=== PATIENT | female | born 1955 | race Caucasian/White ===

== ENCOUNTER 2018-12-23 19:08 | Observation (INO) | payer BC ==
[2018-12-23 19:53] LABS: #Basophils 0.1 thou/uL (0.0-0.2); #Eosinphils 0.3 thou/uL (0.0-0.7); #Lymphocytes 2.6 thou/uL (1.20-3.40); #Monocytes 0.5 thou/uL (0.11-0.59); #Neutrophils 2.3 thou/uL (1.40-6.50); %Basophils 1.2 % (0.0-1.0); %Eosinophils 5.2 % (0.0-10.0); %Lymphocytes 45.9 % (21.0-51.0); %Monocytes 7.9 % (0.0-10.0); %Neutrophils 39.9 % (42.0-75.0); Hemoglobin 14.7 g/dL (12.0-16.0); Mean Corpuscular HGB CONC 34.3 g/dL (32.0-36.0); Mean Corpuscular Hemoglobin 32.5 pg (27.0-31.0); Mean Corpuscular Volume 94.8 fL (78.0-98.0); Mean Platelet Volume 8.5 fL (7.4-10.4); Platelet Count 215 thou/uL (130-400); RBC Distribution Width 11.3 % (11.5-14.5); Red Blood Cell (RBC) Count 4.52 mill/uL (4.20-5.40); White Blood Cell (WBC) Count 5.7 thou/uL (4.8-10.8)
[2018-12-23 20:14] LABS: ALT (SGPT) 10 U/L (8-55); AST (SGOT) 11 U/L (5-34); Albumin 4.1 g/dL (3.4-4.8); Alkaline Phosphatase 74 U/L (40-110); Anion Gap 10 mmol/L (10-20); BUN (Urea Nitrogen) 13 mg/dL (9.8-20.1); Bilirubin, Total 0.3 mg/dL (0.2-1.2); Calc. Creatinine Clearance 0 mL/min (70-130); Carbon Dioxide 28 mmol/L (23-31); Chloride 105 mmol/L (98-107); Estimated GFR-MDRD 60; Globulin 2.5 g/dL (2.4-3.5); Glucose 88 mg/dL (80-115); Potassium 3.8 mmol/L (3.5-5.1); Protein, Total 6.6 g/dL (6.0-8.3); Sodium 139 mmol/L (136-145)
--- NOTE | 2018-12-23 21:04 | CT ---
CT Brain WO Con History: Right-sided weakness and numbness Comparison: None. Findings: No acute hemorrhage or infarct. No midline shift or mass effect. Ventricular size and extra -axial CSF spaces are normal. Calvarium is intact. Paranasal sinuses and mastoids are clear. Impression: No acute intracranial abnormality.
[2018-12-23 21:18] LABS: Bilirubin Negative (Negative); Blood, Urine Negative (Negative); Clarity Clear (Clear); Glucose, Urine (Dipstick) Normal (Negative); Leukocyte Negative Leu/uL (Negative); Nitrite Negative (Negative); Protein, Urine (Dipstick) Negative (Neg-Trace); Urobilinogen Normal mg/dL (Less than 2)
[2018-12-23] MEDS ORDERED: Nicotine 14 MG PATCH TOP SCH (21:45)
--- NOTE | 2018-12-23 22:56 | PDOC.FPRHP ---
- History of Present Illness Chief Complaint: R. sided weakness History of Present Illness: Pt reports taking hot bath today and states that her right arm got weak. Pt reports driving yesterday and that her R. leg got so weak she had to lift her leg to move it. Pt reports when writing over the last week she will get easily tired and reports not being able to lift right arm. Reports having 30 lb weight loss since February. Denies any ringing in her ears. Denies any vertigo or dizziness. Denies anybody noticing that she has abnormal gait. Pt reports at times when turning into her office she will bang into the side of the door. Reports has been getting worse. Says door frames interactions have worsened over the last few weeks. Denies any trouble swallowing. Reports food not tasting as good lately. Pt reports for last 20 years she has had trouble with finding words at times. - Allergies/Adverse Reactions Allergies Allergy/AdvReac Type Severity Reaction Status Date / Time No Known Allergies Allergy Verified 12/24/18 00:07 - Home Medications Medication Instructions Recorded Confirmed Type Atorvastatin Calcium 10 mg PO DAILY #30 tablet 12/24/18 Rx Cyanocobalamin (Vitamin B-12) 1,000 mcg PO DAILY 12/24/18 12/24/18 History [B-12] Ergocalciferol [Drisdol] 1 cap PO Q7DAYS 12/24/18 12/24/18 History Comments: B12 injections Vitamin D - History PMHx: Negative PSHx: None FHx: Mother- Osteoporosis, Dad- of Stroke age 92, had breast cancer, Sister - seizures Social: drinks 2 drinks once a week, Smokes ppd forever, Denies any illicit drug use Code Status: Full Code - Review of Systems General: denies: night sweats, fatigue Eyes: denies: eye pain, vision changes ENT: denies: nasal congestion, rhinorrhea Respiratory: reports: exercise intolerance. denies: cough, shortness of breath Cardiovascular: denies: chest pain, edema Gastrointestinal: denies: nausea, vomiting, diarrhea, constipation, abdominal pain, GI bleeding Genitourinary: denies: incontinence, dysuria, polyuria Skin: denies: rashes, lesions Musculoskeletal: denies: pain, swelling, arthritis/arthralgias Neurological: denies: numbness, seizure, weakness Psychological: denies: anxiety, depression - Vital signs BP: [117/66] HR: [88] RR: [18] Tmax: [98.3] Pox: [98]% on [RA] Wt: [] - Physical Exam Constitutional: NAD, awake, alert and oriented, well developed HEENT: normocephalic and atraumatic, PERRLA, EOMI, conjunctiva clear, no scleral icterus, grossly normal vision, grossly normal hearing, normal nasal mucosa, MMM, oropharynx clear, good dention Neck: supple, FROM, trachea midline, no LAD, no JVD Chest: no-tender to palpation, no lesions Heart: RRR, normal S1/S2, no murmurs/rubs/gallops, pulses present, no edema Lungs: CTAB, no respiratory distress, good air movement, no rales/rhonchi, no wheezing, no retractions Abdomen: soft, non-tender, bowel sounds present, no masses/distention, no hernias Musculoskeletal: normal structure, normal tone, ROM grossly normal Neurological: other (2/5 Strength on RUE and RLE) Skin: no rash/lesions, no jaundice Heme/Lymphatic: no unusual bruising or bleeding, no purpura, no petechia Psychiatric: normal mood and affect, good judgment and insight, intact recent and remote memory FMR H&P: Results - Labs Result Diagrams: 12/24/18 05:01 12/24/18 05:01 Lab results: WBC 5.7 thou/uL (4.8-10.8) 12/23/18 19:39 Hgb 14.7 g/dL (12.0-16.0) 12/23/18 19:39 Hct 42.8 % (36.0-47.0) 12/23/18 19:39 MCV 94.8 fL (78.0-98.0) 12/23/18 19:39 Plt Count 215 thou/uL (130-400) 12/23/18 19:39 Neutrophils % 39.9 % (42.0-75.0) L 12/23/18 19:39 Sodium 139 mmol/L (136-145) 12/23/18 19:39 Potassium 3.8 mmol/L (3.5-5.1) 12/23/18 19:39 Chloride 105 mmol/L (98-107) 12/23/18 19:39 Carbon Dioxide 28 mmol/L (23-31) 12/23/18 19:39 BUN 13 mg/dL (9.8-20.1) 12/23/18 19:39 Creatinine 0.95 mg/dL (0.6-1.1) 12/23/18 19:39 Glucose 88 mg/dL (80-115) 12/23/18 19:39 Calcium 9.0 mg/dL (7.8-10.44) 12/23/18 19:39 Total Bilirubin 0.3 mg/dL (0.2-1.2) 12/23/18 19:39 AST 11 U/L (5-34) 12/23/18 19:39 ALT 10 U/L (8-55) 12/23/18 19:39 Alkaline Phosphatase 74 U/L (40-110) 12/23/18 19:39 Serum Total Protein 6.6 g/dL (6.0-8.3) 12/23/18 19:39 Albumin 4.1 g/dL (3.4-4.8) 12/23/18 19:39 Urine Ketones Negative mg/dL (Negative) 12/23/18 20:49 Urine Blood Negative (Negative) 12/23/18 20:49 Urine Nitrite Negative (Negative) 12/23/18 20:49 Ur Leukocyte Esterase Negative Jonnathan/uL (Negative) 12/23/18 20:49 FMR H&P: A/P - Problem List (1) TIA (transient ischemic attack) Status: Acute Code(s): G45.9 - TRANSIENT CEREBRAL ISCHEMIC ATTACK, UNSPECIFIED (2) Stroke Status: Suspected Code(s): I63.9 - CEREBRAL INFARCTION, UNSPECIFIED - Plan 1. Stroke r/o -Patient's multi-month history of right-sided weakness w/ acute worsening is concerning -Patient previously began work-up for aforementioned symptoms at outside hospital - was told B12 deficiency -Weakness noted on right side w/o facial droop, slurring or loss of sensation -Sub-chronic insult from stroke appears to be most likely etiology, cannot r/o autoimmune causes -CT Head: Negative -MRI Brain: Pending -Rheumatoid Factor: Pending -ESR: Pending -Neuro Consult: Pending Code: Full Code DVT PPx: SCDs and Lovenox Diet: Heart Healthy Activity: Ad Ni Dispo: Admit to Telemetry Floor for further evaluation. Await MRI Brain results as well as lab values. Coordinate closely w/ Neuro if age-indeterminate infarct is isolated - treat in outpatient setting if stroke appears unlikely. Expected LOS > 24H. FMR H&P: Upper Level - Pertinent history I was present w/ the sports intern during the HPI. I scribed the above HPI. I edited the above document as needed. - Pertinent findings Pt has noted RUE and RLE weakness. CN2-12 grossly intact. See above for thourough neuro exam. No other abnormality noted on PE. - Plan Date/Time: 12/23/18 6398 I, Daniel Oquendo, PGY-3 have evaluated this patient and agree with findings/ plan as outlined by sports intern resident. Pertinent changes/additions are listed here. Pt comes in with recent history of R. sided weakness. Pt being admitted at this time as R. sided weakness worsened today. Pt states has had some workup outpt. Concern for stroke at this time. Sx's have been present for almost a year. Possibly could be some underlying autoimmune pathology. RF, ASHLEY, ESR pending. Will admit and workup for stroke at this time. Neuro consulted. ECHO, Carotid Doppler, ECHO pending. PT/OT/Speech consulted. See above for more detailed plan. Addendum - Attending - Attending Attestation Date/Time: 12/28/18 2279 I personally evaluated the patient and discussed the management with Dr. Nunes at time of admission. I agree with the History, Examination, Assessment and Plan documented above with any addition or exceptions noted below.
[2018-12-23] MEDS ORDERED: Aspirin Chewable 81 MG TAB ONE (23:03)
[2018-12-23] MEDS ORDERED: Ondansetron ODT 4 MG TAB PO PRN (23:48)
[2018-12-23] MEDS ORDERED: Acetaminophen 325 MG TAB PO PRN (23:48)
[2018-12-23] MEDS ORDERED: Loperamide HCl 2 MG CAP PO PRN (23:48)
[2018-12-23] MEDS ORDERED: hydrALAZINE 20 MG/ML VIAL SLOW IVP PRN (23:48)
[2018-12-23 23:57] VITALS: BMI 22.3
[2018-12-24 05:21] LABS: #Basophils 0.1 thou/uL (0.0-0.2); #Eosinphils 0.3 thou/uL (0.0-0.7); #Lymphocytes 2.5 thou/uL (1.20-3.40); #Monocytes 0.4 thou/uL (0.11-0.59); #Neutrophils 1.9 thou/uL (1.40-6.50); %Basophils 1.3 % (0.0-1.0); %Eosinophils 5.9 % (0.0-10.0); %Lymphocytes 48.2 % (21.0-51.0); %Monocytes 7.4 % (0.0-10.0); %Neutrophils 37.3 % (42.0-75.0); Hemoglobin 13.8 g/dL (12.0-16.0); Mean Corpuscular HGB CONC 34.6 g/dL (32.0-36.0); Mean Corpuscular Hemoglobin 32.6 pg (27.0-31.0); Mean Corpuscular Volume 94.2 fL (78.0-98.0); Mean Platelet Volume 8.5 fL (7.4-10.4); Platelet Count 184 thou/uL (130-400); RBC Distribution Width 11.4 % (11.5-14.5); Red Blood Cell (RBC) Count 4.23 mill/uL (4.20-5.40); White Blood Cell (WBC) Count 5.2 thou/uL (4.8-10.8)
--- NOTE | 2018-12-24 05:39 | PDOC.FM ---
- Objective Vital Signs & Weight: Vital Signs (12 hours) Temp Pulse Resp BP Pulse Ox 12/23/18 23:50 97.7 F 72 16 117/59 L 98 Weight Weight 68.538 kg Result Diagrams: 12/24/18 05:01 12/23/18 19:39 Addendum - Attending - Attending Attestation Date/Time: 12/24/18 5986 I personally evaluated the patient and discussed the management with Dr. Oquendo and Des prior to midnight. I agree with the History, Examination, Assessment and Plan as discussed. H&P pending. Su has mild right arm and leg weakness of insidious onset that has been present for many weeks that has been worsening over the past several days. CT scan of head was unremarkable. MRI is ordered. I would expect a CVA that occurred several weeks ago to be evident on CT. While the MRI may be revealing, a lesion may be present at the level of the C- spine, or from atypical etiology.
[2018-12-24 05:48] LABS: ALT (SGPT) 9 U/L (8-55); AST (SGOT) 9 U/L (5-34); Albumin 3.5 g/dL (3.4-4.8); Alkaline Phosphatase 66 U/L (40-110); Anion Gap 10 mmol/L (10-20); BUN (Urea Nitrogen) 9 mg/dL (9.8-20.1); Bilirubin, Total 0.5 mg/dL (0.2-1.2); Calc. Creatinine Clearance 80 mL/min (70-130); Calcium 8.5 mg/dL (7.8-10.44); Carbon Dioxide 26 mmol/L (23-31); Cardiac Risk 3.2 (Less than 4.5); Chloride 108 mmol/L (98-107); Cholesterol 130 mg/dl (< 200 Desired); Estimated GFR-MDRD 73; Globulin 2.2 g/dL (2.4-3.5); Glucose 86 mg/dL (80-115); HDL Cholesterol 41 mg/dL (>60 Neg Risk); LDL Cholesterol, Calculated 71 mg/dL; Potassium 3.7 mmol/L (3.5-5.1); Protein, Total 5.7 g/dL (6.0-8.3); Sodium 140 mmol/L (136-145); Triglycerides 90 mg/dL (Less than 150)
--- NOTE | 2018-12-24 06:37 | PDOC.FM ---
- Subjective Subjective: NAEO. Patient resting comfortably in bed. Patient states that her strength is improved in the mornings and will worsen throughout the day. She states right now her strength is good and was able to move her right arm around, lift her purse, and write something. She states if she were to start walking down the [place] she would develop a foot drop on the right. She was worked up at [facility] and was given B12 which has not improved her symptoms. Patient denies any vision changes, denies any eye lid droop, denies chest pain, SOB, dysarthria. - Objective MAR Reviewed: Yes Vital Signs & Weight: Vital Signs (12 hours) Temp Pulse Resp BP BP Pulse Ox 12/24/18 04:00 97.6 F 77 16 97/65 96 12/23/18 23:50 97.7 F 72 16 117/59 L 98 Weight Weight 68.538 kg I&O: 12/22/18 12/23/18 12/24/18 06:59 06:59 06:59 Output Total 540 Balance -540 Result Diagrams: 12/24/18 05:01 12/24/18 05:01 Phys Exam - Physical Examination Constitutional: NAD HEENT: moist MMs, sclera anicteric Neck: supple, full ROM Respiratory: clear to auscultation bilateral Cardiovascular: RRR, no significant murmur, no rub Gastrointestinal: soft, non-tender, no distention, positive bowel sounds Musculoskeletal: no edema, pulses present Neurological: normal sensation, moves all 4 limbs strength in upper extremities 4/5 in right 5/5 left Psychiatric: normal affect, A&O x 3 Skin: no rash, normal turgor, cap refill <2 seconds Dx/Plan (1) TIA (transient ischemic attack) Code(s): G45.9 - TRANSIENT CEREBRAL ISCHEMIC ATTACK, UNSPECIFIED Status: Acute (2) Stroke Code(s): I63.9 - CEREBRAL INFARCTION, UNSPECIFIED Status: Suspected - Plan Plan: TIA vs stroke vs autoimmune Patient presenting with right sided weakness for several months. CT brain neg. - MRI showing no acute process. There was evidence of small chronic ischemic changes in the periventricular white matter. - Echo pending - US carotid US showing no significant stenosis. - ESR, RA pending. AchR-ab pending - Neurology has been consulted, appreciate recommendations. Tobacco use Patient smokes 1 pack/day for many years - Will encourage cessation Code: FULL Diet: HH VTE: lovenox Dispo: Neuro recs. Expected >48hr. Case discussed with Dr. Henson Addendum - Attending - Attending Attestation Date/Time: 12/24/18 2298 I personally evaluated the patient and discussed the management with Dr. Packer I agree with the History, Examination, Assessment and Plan documented above with any addition or exceptions noted below - Patietn without complaints. Denies any weakness currently. Afebrile VSS. A/P: 1) Intermittent right sided weakness- brain MRI negative. Neuro consult; await recommendations. Will check MRI C- and L-spine. Autoimmune labs ordered. Probable d/c later today with outpatient follow-up.
--- NOTE | 2018-12-24 08:44 | MRI ---
MRI BRAIN WITHOUT CONTRAST: HISTORY: Right-sided weakness. FINDINGS: No restricted diffusion is seen. There are foci of T2 prolongation in the periventricular white mate r consistent with mild chronic small-vessel ischemic disease. No residual infarct, hemorrhage, midli ne shift, or abnormal extraaxial fluid collections are seen. The ventricular size is normal and the basilar cisterns patent. The visualized paranasal sinuses and mastoid air cells are well aerated. IMPRESSION: No evidence of acute intracranial process. POS: OFF
--- NOTE | 2018-12-24 08:47 | ULT ---
BILATERAL CAROTID DUPLEX ULTRASOUND: HISTORY: Stroke. TECHNIQUE: Cat scale, color flow, and spectral Doppler imaging of the extracranial carotid artery systems is pe rformed bilaterally. FINDINGS: There is plaque formation on either side. The peak systolic velocity in the right ICA measures 75 cm/s with an end-diastolic velocity of 29 cm/ s and a systolic ratio of 0.90. The peak systolic velocity in the left ICA measures 66 cm/s with an end-diastolic velocity of 24 cm/s and a systolic ratio of 0.83. Flow in both vertebral arteries remains antegrade. IMPRESSION: No evidence of hemodynamically significant stenosis. POS: OFF
[2018-12-24] MEDS ORDERED: Enoxaparin Sodium 40 MG/0.4 ML SYRINGE SC SCH (09:00)
[2018-12-24] MEDS ORDERED: Aspirin 81 mg Enteric Coated Tablet PO SCH (09:00)
--- NOTE | 2018-12-24 12:16 | CON ---
DATE OF CONSULTATION: 12/24/2018 CONSULTING PHYSICIAN: [facility]. IMPRESSION: Variable right-sided weakness for the last 10 months or more of uncertain etiology. Her MRI of the brain appears unremarkable. Carotid ultrasound is clear. PLAN: 1. Acetylcholine-receptor antibody. 2. Office followup. HISTORY OF PRESENT ILLNESS: Ms. Gonzalez is a 63-year-old woman with no significant past history. For the last 10 months or more, she has noticed some variable weakness in the right arm and leg. She was doing a lot a walking in last February and noticed that she developed a footdrop. She never has any sensory loss associated with it. When she is at work during her day, she starts noticing that her right hand gets weak and gets harder to write. She has never had any speech difficulties, double vision, ptosis, difficulty holding her head up or jaw weakness. She had an MRI of the brain done and a carotid ultrasound, which have yet to be read out. On my review, they appear unremarkable other than some minor small vessel ischemic changes. PAST MEDICAL HISTORY: Otherwise, negative. ALLERGIES: NONE. SOCIAL HISTORY: No tobacco or illicit drug use. FAMILY HISTORY: Unremarkable. REVIEW OF SYSTEMS: Ten-system review of systems is otherwise negative. PHYSICAL EXAMINATION: GENERAL: She is a healthy-appearing woman, in no acute distress. VITAL SIGNS: Stable. She has been afebrile. HEENT: Pupils are equal and reactive. Conjunctivae are clear. Oropharynx clear. No ptosis is present. NECK: Supple. No lymphadenopathy. EXTREMITIES: No cyanosis, clubbing, or edema. NEUROLOGIC: She was alert and cooperative. Her speech was fluent and clear. There is a slight facial asymmetry with flattening on the right. Motor exam showed good advance scout strength bilaterally. She had no fix or drift. Sensation was intact to light touch. Reflexes were 2+ and symmetric. Plantar response was downgoing on the left and upgoing on the right. She can walk independently. IMAGING DATA: EKG showed a normal sinus rhythm. SUMMARY: It is an unusual presentation of a chronic variable right-sided weakness with an upgoing toe on the right side. Her MRI does not give me a clear explanation. It is suspicious that she may have neurodegenerative process, although I am uncertain at this juncture. I will send off a myasthenia antibody and I will follow up with her in the office. Job ID: [id number]
[2018-12-24 15:57] VITALS: BP 108/58; TEMP 98.2
[2018-12-24 16:05] LABS: ANA Symphony (Qualitative) Negative (Negative); ANA Symphony (Quantitative) 0.1 Ratio (< 0.7 Negative); CCP IgG Antibody 0.5 EliAU/mL (<7 Negative); EliA RAS New Method **** NEW METHOD ****; Rheumatoid Factor IgA Antibody 1.3 IU/mL (<14 Negative); Rheumatoid Factor IgM Antibody 2.5 IU/mL (<3.5 Negative); dsDNA IgG Antibody Less than 0.5 IU/mL (<10 Negative)
--- NOTE | 2018-12-24 16:33 | MRI ---
MRI cervical spine noncontrast HISTORY: Neck pain with right arm radiculopathy. FINDINGS: Vertebral body heights and alignment are maintained. Bone marrow signal within normal limit s. C2-3: Mild osteophytosis. Central canal and neural foramina are patent. C3-4: Mild posterior disc bulge. Osteophytosis of the vertebral bodies and facets. Mild stenosis of t he central canal. Moderate stenosis of the left neural foramen. C4-5: Minimal disc bulge. Osteophytosis. Central canal and neural foramina are patent. C5-6: Very mild posterior disc bulge. Slight effacement of the right ventral aspect of the spinal cor d. No abnormal signal within the cord. Neural foramina are patent. C6-7: Mild osteophytosis. Central canal and neural foramina are patent. C7-T1: Central canal and neural foramina are patent. IMPRESSION: Mild right posterior disc bulge at the C5-6 level, slightly effacing the ventral aspect o f the thecal sac and spinal cord. No significant compression or abnormal signal of the spinal cord.
--- NOTE | 2018-12-24 16:43 | MRI ---
MRI lumbar spine noncontrast HISTORY: Back pain. Right-sided weakness. FINDINGS: Conus medullaris has normal appearance. Vertebral body heights and alignment are maintained . Bone marrow signal is within normal limits. Desiccation of the lowest 2 intervertebral discs. Minimal posterior disc bulge at the L4-5 level. Small amount of fluid within the facets at the lowest 3 levels. No focal disc herniation. Central canal and neural foramina are patent. IMPRESSION: Minimal degenerative changes lumbar spine. No focal disc herniation or nerve root rylee huntre.
[2018-12-24] MEDS ORDERED: Atorvastatin Calcium 40 MG TAB PO SCH (21:00)
--- NOTE | 2018-12-27 13:30 | DIS ---
DATE OF ADMISSION: 12/23/2018 DATE OF DISCHARGE: 12/24/2018 RESIDENT: ANMOL AGRAWAL MD ADMITTING ATTENDING: Tom Fontana MD DISCHARGE ATTENDING: Lydia Henson MD CONSULTS: Neurology. PROCEDURES: None. DISCHARGE MEDICATIONS: 1. Atorvastatin 10 mg oral daily. 2. Vitamin B12 of 1000 mcg oral daily. 3. Drisdol 1 capsule oral every week. DISCONTINUED MEDICATIONS: None. PRIMARY DIAGNOSIS: Right-sided weakness secondary to transient ischemic attack versus autoimmune versus neurological degenerative process. SECONDARY DIAGNOSIS: Tobacco use. HISTORY OF PRESENT ILLNESS/HOSPITAL COURSE: This is a 63-year-old female, who came to the ER for a chief complaint of right-sided weakness. She states that she was driving yesterday when she became so weak that she had to lift her leg in order to move it. She states that her right arm also gets fatigued while writing. She reports that these symptoms have been going on for the last year or so. She does also report a 30 pounds weight loss since February. The patient denied having abnormal gait. Denies any facial droop or abnormal speech. The patient says that she came into the ER, because her symptoms have been getting worse. The patient reports no trouble swallowing food. No shortness of breath. Denies eye droop. The patient was getting a work up done at [facility] and was told to start vitamin B12, but has had no resolution in her symptoms. The patient was admitted to observation for these symptoms. Neurology was consulted. The patient had a CT of her brain, that was negative for any changes. The MRI of her brain was also unremarkable. Carotid ultrasound showed no stenosis of the carotids. The patient had labs performed that were unremarkable. She did have an autoimmune workup that showed negative for rheumatoid arthritis and lupus. There is still an Ach-receptor AB for myasthenia gravis pending at this time. The patient also had an MRI done of her spine at this time that was unremarkable as well. The patient's EKG was normal sinus rhythm. Due to the patient's unusual presentation of chronic right-sided weakness and imaging that has been unremarkable thus far, it is suspicious that she may have an underlying neurodegenerative process going on. The patient is to follow up with Dr. Richter after discharge. Patient was counselled on tobacco cessation. DISPOSITION: Stable. DISCHARGE INSTRUCTIONS: 1. Location: Home. 2. Diet: Regular. 3. Activity: Ad polo. 4. Followup: Follow up with PCP within a week and follow up with Dr. Richter within 2 to 4 weeks. Job ID: [id number] [facility] HOSPITALAlfie
--- NOTE | 2019-01-01 15:01 | EKG ---
Test Reason : Blood Pressure : / mmHG Vent. Rate : 084 BPM Atrial Rate : 084 BPM P-R Int : 174 ms QRS Dur : 078 ms QT Int : 386 ms P-R-T Axes : 071 016 068 degrees QTc Int : 456 ms Normal sinus rhythm Left atrial enlargement Cannot rule out Anteroseptal infarct , age undetermined Abnormal ECG Confirmed by DELORIS MCKEON DO ([id number]), sound editor EDDIE URBANO ([id number]) on 01/01/2019 3:01:04 PM Referred By: Confirmed By:DELORIS MCKEON DO
== END 2018-12-24 17:55 | disposition home or self-care (01) ==
LOC: ERS 19:08 → 2SW 23:13
PROVIDERS: ADMIT Family Medicine; ATTEND Family Medicine
DX: R53.1 Weakness (principal); F17.210 Nicotine dependence, cigarettes, uncomplicated; M25.78 Osteophyte, vertebrae; Z79.899 Other long term (current) drug therapy
CPT/HCPCS: 36415; 70450; 70551; 72141; 72148; 80053; 80061; 81003; 83519; 83520; 84443; 84484; 85025; 85652; 86038; 86200; 86225; 93005; 93880; G0378

== ENCOUNTER 2022-01-29 09:25 | Outpatient (CLI) | payer BC ==
[2022-01-29] MEDS ORDERED: Magnevist 469MG/ML 20 ML VIAL ONE ×2 (11:25)
== END 2022-01-29 09:26 | disposition home or self-care (01) ==
LOC: MRI 09:25
PROVIDERS: ATTEND Psychiatry & Neurology Neurology with Special Qualifications in Child Neurology
DX: G35 Multiple sclerosis (principal)
CPT/HCPCS: 70553; 72156; 82565

== ENCOUNTER 2024-01-28 12:20 | Outpatient (CLI) | payer MEDICARE | END 2024-01-28 12:21 | disposition home or self-care (01) | LOC: BICMAMMO 12:20 | PROVIDERS: ATTEND Physician Assistant | DX: Z12.31 Encounter for screening mammogram for malignant neoplasm of breast (principal); Z80.3 Family history of malignant neoplasm of breast | CPT/HCPCS: 77063; 77067 ==